=== PATIENT | female | born 1955 ===

== ENCOUNTER 2018-04-02 12:28 | Outpatient (CLI) | payer OTHER | END 2018-04-02 17:07 | disposition home or self-care (01) | LOC: MAMO-SONO 12:28 | DX: Z12.31 Encounter for screening mammogram for malignant neoplasm of breast (principal); E04.1 Nontoxic single thyroid nodule ==

== ENCOUNTER 2018-12-31 10:48 | Outpatient (CLI) | payer OTHER | END 2018-12-31 10:54 | disposition home or self-care (01) | LOC: SONOGRAMA 10:48 | DX: K76.0 Fatty (change of) liver, not elsewhere classified (principal); E03.8 Other specified hypothyroidism ==

== ENCOUNTER 2019-04-17 11:27 | Outpatient (CLI) | payer OTHER | END 2019-04-17 11:29 | disposition home or self-care (01) | LOC: SONOGRAMA 11:27 | DX: R22.1 Localized swelling, mass and lump, neck (principal) ==

== ENCOUNTER 2020-04-12 11:43 | Outpatient (CLI) | payer OTHER | END 2020-04-12 12:02 | disposition home or self-care (01) | LOC: RAD 11:43 | PROVIDERS: ATTEND Orthopaedic Surgery | DX: G35 Multiple sclerosis (principal); M25.561 Pain in right knee ==

== ENCOUNTER 2020-04-19 10:58 | Outpatient (CLI) | payer OTHER | END 2020-04-19 13:31 | disposition home or self-care (01) | LOC: LAB 10:58 | PROVIDERS: ATTEND Orthopaedic Surgery | DX: E56.1 Deficiency of vitamin K (principal); Z03.818 Encounter for observation for suspected exposure to other biological agents ruled out; E21.2 Other hyperparathyroidism; E55.9 Vitamin D deficiency, unspecified; M85.88 Other specified disorders of bone density and structure, other site; E88.89 Other specified metabolic disorders; M81.8 Other osteoporosis without current pathological fracture ==

== ENCOUNTER → 2020-05-06 | Outpatient (CLI) | payer OTHER | END | disposition home or self-care (01) | LOC: NUCLEAR 11:52 | PROVIDERS: ATTEND Orthopaedic Surgery | DX: M81.0 Age-related osteoporosis without current pathological fracture (principal) ==

== ENCOUNTER 2021-05-29 15:56 | Outpatient (CLI) | payer OTHER | END 2021-05-29 16:01 | disposition home or self-care (01) | LOC: RAD 15:56 | PROVIDERS: ATTEND Surgery Plastic and Reconstructive Surgery | DX: Z01.811 Encounter for preprocedural respiratory examination (principal) ==

== ENCOUNTER → 2022-07-16 10:49 | Outpatient (CLI) | payer OTHER | END | disposition home or self-care (01) | LOC: LAB 10:49 | PROVIDERS: ATTEND Obstetrics & Gynecology | DX: N91.1 Secondary amenorrhea (principal); M99.01 Segmental and somatic dysfunction of cervical region; M99.02 Segmental and somatic dysfunction of thoracic region; M99.03 Segmental and somatic dysfunction of lumbar region; M99.04 Segmental and somatic dysfunction of sacral region; M99.05 Segmental and somatic dysfunction of pelvic region; M79.672 Pain in left foot ==

== ENCOUNTER → 2022-07-30 | Outpatient (CLI) | payer OTHER | END | disposition home or self-care (01) | LOC: MAMO-SONO 11:28 | PROVIDERS: ATTEND Obstetrics & Gynecology | DX: N60.11 Diffuse cystic mastopathy of right breast (principal) ==

== ENCOUNTER 2022-12-10 13:39 | Outpatient (CLI) | payer OTHER | END 2022-12-10 13:49 | disposition home or self-care (01) | LOC: LAB 13:39 | DX: J45.909 Unspecified asthma, uncomplicated (principal); J32.9 Chronic sinusitis, unspecified ==

== ENCOUNTER 2023-02-12 09:34 | Outpatient (CLI) | payer OTHER | END 2023-02-12 09:36 | disposition home or self-care (01) | LOC: RAD 09:34 | PROVIDERS: ATTEND Orthopaedic Surgery | DX: S72.144D Nondisplaced intertrochanteric fracture of right femur, subsequent encounter for closed fracture with routine healing (principal) ==

== ENCOUNTER 2023-06-04 10:17 | Outpatient (CLI) | payer OTHER | END 2023-06-04 10:19 | disposition home or self-care (01) | LOC: RAD 10:17 | PROVIDERS: ATTEND Orthopaedic Surgery | DX: S72.144D Nondisplaced intertrochanteric fracture of right femur, subsequent encounter for closed fracture with routine healing (principal); M25.661 Stiffness of right knee, not elsewhere classified ==

== ENCOUNTER 2023-08-02 10:26 | Outpatient (CLI) | payer OTHER ==
[2023-08-02 11:29] LABS: HEMATOCRIT 41.8 % (36.0-45.00); MEAN CELL VOLUME 90.2 fL (80.00-100.00); MEAN CORPUSCULAR HEMOGLOBIN 30.2 pg (27.00-32.0); MEAN CORPUSCULAR HGB CONC 33.5 g/dl (32.0-36.0); PLATELET COUNT 257 K/uL (150-450); RED BLOOD COUNT 4.63 M/uL (4.00-6.00); RED CELL DISTRIBUTION WIDTH 14.6 % (11.5-14.5)
[2023-08-02 12:05] LABS: ALBUMIN 3.6 gm/dL (3.4-5.0); BILIRUBIN TOTAL 0.33 mg/dL (0.3-1.2); CALCIUM 9.7 mg/dL (8.5-10.1); CHOL HDL RATIO 3.4 (0-5.0); CREATININE SERUM 0.75 mg/dL (0.55-1.02); GFR 76.62; GLOBULINA 3.4 G/DL (2.4-3.5); POTASSIUM 5.13 mEq/L (3.5-5.1); T4 TOTAL 8.66 UG/DL (4.8-13.9); TSH 3.13 uIU/mL (0.358-3.74)
[2023-08-02 12:13] LABS: URINE APPEARANCE Clear; URINE BILIRRUBIN Negative (NEGATIVE); URINE BLOOD Negative; URINE COLOR Yellow; URINE GLUCOSE Negative (NEGATIVE); URINE LEUKOCYTE Small; URINE NITRATE Negative; URINE PROTEIN Negative (NEGATIVE); URINE UROBILINOGEN 0.2 E.U./dl
[2023-08-02 12:16] LABS: URINE BACTERIA 23.9 uL (0.0-1933); URINE EPITHELIAL CELLS 22.5 uL (0.0-38.8); URINE WBC 13.1 uL (0.0-23.2)
[2023-08-02 13:05] LABS: T3 TOTAL 0.994 ng/ml (0.846-2.02); VITAMIN D3 25 HYDROXY 57.39 ng/ml (30-120)
== END 2023-08-02 10:41 | disposition home or self-care (01) ==
LOC: LAB 10:26
PROVIDERS: ATTEND Orthopaedic Surgery
DX: E03.9 Hypothyroidism, unspecified (principal); E11.9 Type 2 diabetes mellitus without complications; N39.0 Urinary tract infection, site not specified

== ENCOUNTER 2023-08-02 11:12 | Outpatient (CLI) | payer OTHER | END 2023-08-02 11:19 | disposition home or self-care (01) | LOC: RAD 11:12 | PROVIDERS: ATTEND Orthopaedic Surgery | DX: M25.562 Pain in left knee (principal) ==

== ENCOUNTER 2023-12-18 06:37 | Day surgery (SDC) | payer OTHER ==
[2023-12-09 12:21] LABS: HEMATOCRIT 39.9 % (36.0-45.00); HEMOGLOBIN 13.4 g/dL (12.0-15.00); MEAN CELL VOLUME 87.5 fL (80.00-100.00); MEAN CORPUSCULAR HEMOGLOBIN 29.2 pg (27.00-32.0); MEAN CORPUSCULAR HGB CONC 33.4 g/dl (32.0-36.0); PLATELET COUNT 236 K/uL (150-450); RED BLOOD COUNT 4.57 M/uL (4.00-6.00); RED CELL DISTRIBUTION WIDTH 14.3 % (11.5-14.5)
[2023-12-09 12:22] LABS: URINE APPEARANCE Clear; URINE BILIRRUBIN Negative (NEGATIVE); URINE BLOOD Negative; URINE COLOR Yellow; URINE GLUCOSE Negative (NEGATIVE); URINE KETONE Negative (NEGATIVE); URINE LEUKOCYTE Trace; URINE NITRATE Negative; URINE PROTEIN Negative (NEGATIVE); URINE UROBILINOGEN 0.2 E.U./dl
[2023-12-09 12:23] VITALS: BP 118/75
[2023-12-09 12:26] LABS: URINE BACTERIA 32.7 uL (0.0-1933); URINE EPITHELIAL CELLS 16.6 uL (0.0-38.8); URINE RBC 5.8 uL (0.0-20.8); URINE WBC 12.9 uL (0.0-23.2)
[2023-12-09 13:06] LABS: CALCIUM 9.4 mg/dL (8.5-10.1); CREATININE SERUM 0.63 mg/dL (0.55-1.02); GFR 93.42; POTASSIUM 4.3 mEq/L (3.5-5.1)
[2023-12-09 13:08] LABS: PARTIAL THROMBOPLASTIN TIME 26.8 SECONDS (22.0-34.0); PROTHROMBIN TIME 10.9 SECONDS (9.0-11.5)
[~2023-12-18] VITALS: Ht 170.2 cm; Wt 74.8 kg
[~2023-12-18 06:37] MED LIST: GLUMETZA500 MG PO
[2023-12-18] MEDS ORDERED: METRONIDAZOLE/SODIUM CHLORIDE 500 MG/100 ML PIGGYBACK IV ONE (08:06)
[2023-12-18] MEDS ORDERED: CEFTRIAXONE SODIUM 2,000 MG VIAL ONE (08:06)
[2023-12-18] MEDS ORDERED: ENOXAPARIN SODIUM 40 MG/0.4 ML SYRINGE SUBCUTANEO ONE (08:06)
[2023-12-18] MEDS ORDERED: BUPIVACAINE HCL/MPF 0.5% 30ML VIAL ONE (11:11)
[2023-12-18] MEDS ORDERED: PERCOCET 5-3251 EACH PO (12:06)
[2023-12-18] MEDS ORDERED: NEURONTIN300 MG PO (12:07)
[2023-12-18] MEDS ORDERED: CELEBREX200MG PO (12:07)
[2023-12-18] MEDS ORDERED: POLY119PG PO (12:07)
== END 2023-12-18 15:05 | disposition home or self-care (01) ==
LOC: CIR.AMB 06:37
PROVIDERS: ATTEND Surgery
DX: K40.90 Unilateral inguinal hernia, without obstruction or gangrene, not specified as recurrent (principal)
CPT/HCPCS: 49650; C1781

== ENCOUNTER → 2024-03-18 11:26 | Outpatient (CLI) | payer OTHER ==
[~2024-03-18 11:26] MED LIST changes: +CELEBREX200MG PO; +NEURONTIN300 MG PO; +PERCOCET 5-3251 EACH PO; +POLY119PG PO
[2024-03-18 11:47] LABS: HEMOGLOBIN 14.1 g/dL (12.0-15.00); MEAN CELL VOLUME 86.8 fL (80.00-100.00); MEAN CORPUSCULAR HEMOGLOBIN 29.8 pg (27.00-32.0); MEAN CORPUSCULAR HGB CONC 34.3 g/dl (32.0-36.0); PLATELET COUNT 238 K/uL (150-450); RED BLOOD COUNT 4.73 M/uL (4.00-6.00); RED CELL DISTRIBUTION WIDTH 14.1 % (11.5-14.5)
[2024-03-18 12:39] LABS: ALBUMIN 3.7 gm/dL (3.4-5.0); BILIRUBIN TOTAL 0.54 mg/dL (0.3-1.2); CALCIUM 9.5 mg/dL (8.5-10.1); CHOL HDL RATIO 3.3 (0-5.0); CREATININE SERUM 0.68 mg/dL (0.55-1.02); GFR 85.54; GLOBULINA 3.2 G/DL (2.4-3.5); POTASSIUM 3.91 mEq/L (3.5-5.1); T4 TOTAL 9.45 UG/DL (4.8-13.9); TOTAL PROTEIN 6.9 gm/dL (6.4-8.2)
== END | disposition home or self-care (01) ==
LOC: LAB 11:26
DX: E03.9 Hypothyroidism, unspecified (principal); E11.8 Type 2 diabetes mellitus with unspecified complications; K85.90 Acute pancreatitis without necrosis or infection, unspecified; E87.8 Other disorders of electrolyte and fluid balance, not elsewhere classified; E78.5 Hyperlipidemia, unspecified

== ENCOUNTER 2024-03-24 10:37 | Outpatient (CLI) | payer OTHER ==
[2024-03-24 12:23] LABS: ALBUMIN 3.7 gm/dL (3.4-5.0); BILIRUBIN TOTAL 0.29 mg/dL (0.3-1.2); CALCIUM 9.3 mg/dL (8.5-10.1); CREATININE SERUM 0.64 mg/dL (0.55-1.02); GFR 91.74; GLOBULINA 3.2 G/DL (2.4-3.5); PHOSPHOROUS 3.5 mg/dL (2.5-4.9); POTASSIUM 4.27 mEq/L (3.5-5.1); TOTAL PROTEIN 6.9 gm/dL (6.4-8.2)
== END 2024-03-24 10:38 | disposition home or self-care (01) ==
LOC: LAB 10:37
PROVIDERS: ATTEND Orthopaedic Surgery
DX: E55.9 Vitamin D deficiency, unspecified (principal); M85.9 Disorder of bone density and structure, unspecified; E56.1 Deficiency of vitamin K; E21.3 Hyperparathyroidism, unspecified; E88.89 Other specified metabolic disorders; M81.8 Other osteoporosis without current pathological fracture

== ENCOUNTER 2024-04-02 10:55 | Outpatient (CLI) | payer OTHER | END 2024-04-02 10:56 | disposition home or self-care (01) | LOC: NUCLEAR 10:55 | PROVIDERS: ATTEND Orthopaedic Surgery | DX: M81.0 Age-related osteoporosis without current pathological fracture (principal) ==